=== PATIENT | male | born 1955 ===

== ENCOUNTER 2020-07-10 12:06 | Inpatient (IN) ==
[~2020-07-10 12:06] MED LIST: Iopamidol 370 76% 100 ML VIAL ONE
[2020-07-10] MEDS ORDERED: Heparin 10,000 UNITS/ 10 ML VIAL ONE (12:10)
[2020-07-10] MEDS ORDERED: EPINEPHrine 1 MG/10 ML Abboject SYRINGE ONE ×2 (12:10→14:09)
[2020-07-10 12:25] LABS: #Monocytes 0.4 thou/uL (0.11-0.59); #Neutrophils 6.4 thou/uL (1.40-6.50); %Basophils 0.3 % (0.0-1.0); %Eosinophils 0.5 % (0.0-10.0); %Lymphocytes 22.4 % (21.0-51.0); %Monocytes 4.7 % (0.0-10.0); %Neutrophils 72.2 % (42.0-75.0); Hemoglobin 17.3 g/dL (14.0-18.0); Mean Corpuscular HGB CONC 32.7 g/dL (32.0-36.0); Mean Corpuscular Hemoglobin 32.1 pg (27.0-31.0); Platelet Count 166 thou/uL (130-400); RBC Distribution Width 12.6 % (11.5-14.5); Red Blood Cell (RBC) Count 5.39 mill/uL (4.70-6.10); White Blood Cell (WBC) Count 8.8 thou/uL (4.8-10.8)
[2020-07-10] MEDS ORDERED: Rocuronium Bromide 10 MG/ML (10ML VIAL) ONE (12:25)
[2020-07-10] MEDS ORDERED: EPINEPHrine 1 MG/ML VIAL ONE ×2 (12:35→12:36)
[2020-07-10 12:37] LABS: PTT 26.9 sec (22.9-36.1); Prothrombin Time 13.6 sec (12.0-14.7)
[2020-07-10] MEDS ORDERED: Nitroglycerin 0.4 MG TAB (25 Tab Bottle) SL PRN ×2 (13:48)
[2020-07-10] MEDS ORDERED: Sodium Chloride 0.9% 200 ML IV PRN (13:48)
[2020-07-10] MEDS ORDERED: Acetaminophen/Codeine 30-300mg Tablet PO PRN ×2 (13:48)
[2020-07-10] MEDS ORDERED: Amiodarone 150 MG/3 ML VIAL ONE (14:09)
[2020-07-10 16:05] LABS: Actual Bicarbonate (HCO3a) 12.4 mEq/L (22-28); Carboxyhemoglobin (COHb) 0.9 gm% (0.0-3.0); Hemoglobin (Hb) 16.4 g/dL (14.0-18.0); O2 Tension (PaO2), arterial 77.2 mmHg (> 80.0); Potassium - ABG Lab 2.96 mmol/L (3.70-5.30); Puncture Site Arterial Line; pH, Arterial 7.09 (7.35-7.45)
[2020-07-10 16:49] LABS: Albumin 3.2 g/dL (3.4-4.8)
[2020-07-10 16:50] LABS: Chloride 114 mmol/L (98-107); Potassium 3.3 mmol/L (3.5-5.1); Sodium 142 mmol/L (136-145)
[2020-07-10 16:51] LABS: Globulin 2.8 g/dL (2.4-3.5); Glucose 282 mg/dL (80-115)
[2020-07-10 16:53] LABS: Anion Gap 20 mmol/L (10-20); Bilirubin, Total 1.2 mg/dL (0.2-1.2); Carbon Dioxide 11 mmol/L (23-31)
[2020-07-10 16:54] LABS: Alkaline Phosphatase 52 U/L (40-110); Calc. Creatinine Clearance 0 mL/min (70-130)
[2020-07-10 16:55] LABS: BUN (Urea Nitrogen) 19 mg/dL (8.4-25.7)
[2020-07-10 16:56] LABS: AST (SGOT) 402 U/L (5-34)
[2020-07-10 16:57] LABS: ALT (SGPT) 389 U/L (8-55)
== END 2020-07-10 17:45 | disposition expired | DRG 271 ==
LOC: ERS 12:06 → CCL 12:43 → CCU 12:44
PROVIDERS: ADMIT Internal Medicine Cardiovascular Disease; ATTEND Internal Medicine Cardiovascular Disease
PROC: 5A02210 Assistance with Cardiac Output using Balloon Pump, Continuous (ICD-10-PCS; principal; 2020-07-10)
PROC: 3E033XZ Introduction of Vasopressor into Peripheral Vein, Percutaneous Approach (ICD-10-PCS; 2020-07-10)
PROC: B2111ZZ Fluoroscopy of Multiple Coronary Arteries using Low Osmolar Contrast (ICD-10-PCS; 2020-07-10)
PROC: 5A12012 Performance of Cardiac Output, Single, Manual (ICD-10-PCS; 2020-07-10)
PROC: 0BH17EZ Insertion of Endotracheal Airway into Trachea, Via Natural or Artificial Opening (ICD-10-PCS; 2020-07-10)
PROC: 5A1935Z Respiratory Ventilation, Less than 24 Consecutive Hours (ICD-10-PCS; 2020-07-10)
DX: I21.09 ST elevation (STEMI) myocardial infarction involving other coronary artery of anterior wall (principal); I47.2 Ventricular tachycardia; R57.0 Cardiogenic shock; I49.01 Ventricular fibrillation; I25.10 Atherosclerotic heart disease of native coronary artery without angina pectoris; I46.9 Cardiac arrest, cause unspecified
CPT/HCPCS: 31500; 33967; 71045; 76942; 80053; 82553; 82805; 84484; 85025; 85610; 85730; 93005; 93454; 94760; 96365; 96375; C1751; J0171